=== PATIENT | female | born 1980 | race Caucasian/White ===

== ENCOUNTER 2022-06-25 17:11 | Emergency (ER) | payer BC ==
[~2022-06-25] VITALS: Ht 172.7 cm; Wt 70.0 kg
[2022-06-25 17:17] VITALS: BP 147/89
[2022-06-25 17:30] VITALS: BP 136/87
[2022-06-25 17:46] VITALS: BP 98/53
[2022-06-25 17:49] VITALS: BP 98/53
== END 2022-06-25 18:03 | disposition home or self-care (01) | DRG 159 ==
LOC: ED 17:11
PROC: 0CQ1XZZ Repair Lower Lip, External Approach (ICD-10-PCS; principal; 2022-06-25)
DX: S01.511A Laceration without foreign body of lip, initial encounter (principal); W20.8XXA Other cause of strike by thrown, projected or falling object, initial encounter; Y93.89 Activity, other specified

== ENCOUNTER 2024-09-02 00:37 | Emergency (ER) | payer OTHER ==
[~2024-09-02] VITALS: Ht 172.7 cm; Wt 72.0 kg
[2024-09-02 00:48] VITALS: BP 112/83
[2024-09-02 01:00] VITALS: BP 120/72
[2024-09-02] MEDS ORDERED: SODIUM CHLORIDE 0.9% 1,000 ML IV ONE (01:00)
[2024-09-02] MEDS ORDERED: PROMETHAZINE HCL 25 MG/ML AMP IV ONE (01:00)
[2024-09-02 01:15] VITALS: BP 106/68
[2024-09-02 01:16] LABS: BASO% 0.3 % (0-3); EOS% 0.4 % (0-8); HEMATOCRIT 38.7 % (37.0-47.0); HEMOGLOBIN 12.4 g/dl (12.0-16.0); IMMATURE GRANULOCYTES 0.3 % (0.0-5.0); LYMPH% 5.7 % (15-41); MEAN CELL VOLUME 86.6 fL CALC (80.0-100.0); MEAN CORPUSCULAR HGB 27.7 pG CALC (26.0-32.0); MONO% 5.1 % (2-13); NEUT# 9.56 thou/uL (2.00-7.15); NEUT% 88.2 % (42-76); RED BLOOD COUNT 4.47 mill/uL (4.20-5.60); RED CELL DISTRI WIDTH 12.9 % (11.5-15.5)
[2024-09-02 01:28] LABS: ALBUMIN 4.4 g/dL (3.2-5.0); ALKALINE PHOSPHATASE 46 u/l (38-126); ANION GAP 15 (6-22 (CALC)); BILIRUBIN, TOTAL 1.4 mg/dL (0.02-1.3); BUN 20 mg/dL (7-17); BUN/CREATININE RATIO 25 (12-20 (CALC)); CARBON DIOXIDE 21 mmol/l (22-30); CHLORIDE 105 mmol/l (95-108); CREATININE 0.8 mg/dL (0.5-1.0); ESTIMATED GFR 95 ML/MIN (>=90 (CALC)); POTASSIUM 3.9 mmol/l (3.5-5.1); SGOT/AST 28 u/l (14-36); SODIUM 137 mmol/l (137-146); TOTAL PROTEIN 7.3 g/dL (6.3-8.2)
[2024-09-02 01:45] VITALS: BP 113/76
[2024-09-02 02:40] VITALS: BP 113/76
== END 2024-09-02 02:44 | disposition home or self-care (01) | DRG 312 ==
LOC: ED 00:37
PROVIDERS: Family Medicine
PROC: 0HQ0XZZ Repair Scalp Skin, External Approach (ICD-10-PCS; principal; 2024-09-02)
DX: R55 Syncope and collapse (principal); A08.4 Viral intestinal infection, unspecified; S01.01XA Laceration without foreign body of scalp, initial encounter; W18.39XA Other fall on same level, initial encounter; Y92.002 Bathroom of unspecified non-institutional (private) residence as the place of occurrence of the external cause; Z20.822 Contact with and (suspected) exposure to COVID-19
CPT/HCPCS: J2550